=== PATIENT | female | born 1970 | race Asian ===

== ENCOUNTER 2018-07-13 01:12 | Emergency (ER) | payer OTHER ==
[2018-07-13 01:22] VITALS: BP 121/78; PULSE 84; TEMP 98.3; BMI 21.2
[2018-07-13] MEDS ORDERED: ACETAMINOPHEN 325 MG TABLET (FP) ONE (01:23)
[2018-07-13] MEDS ORDERED: ACETAMINOPHEN 325 MG TABLET (FP) PO ONE (01:31)
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
== END 2018-07-13 01:35 | disposition home or self-care (01) ==
LOC: JER 01:12
DX: S09.8XXA Other specified injuries of head, initial encounter (principal); W50.0XXA Accidental hit or strike by another person, initial encounter; Y93.F9 Activity, other caregiving; Y92.238 Other place in hospital as the place of occurrence of the external cause; Y99.0 Civilian activity done for income or pay
CPT/HCPCS: 99281-25